=== PATIENT | female | born 2000 | race Caucasian/White ===

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

== ENCOUNTER 2021-01-23 13:10 | Emergency (ER) | payer OTHER ==
[2021-01-23] MEDS ORDERED: NEXPLANON68 MG SC (13:19)
[2021-01-23 14:01] LABS: URINE BILIRUBIN - DIPSTICK NEGATIVE (NEGATIVE); URINE BLOOD DIPSTICK NEGATIVE (NEGATIVE); URINE COLOR YELLOW; URINE GLUCOSE - DIPSTICK NEGATIVE (NEGATIVE); URINE KETONE NEGATIVE (NEGATIVE); URINE LEUK ESTERASE NEGATIVE (NEGATIVE); URINE PH 5.5 (4.5-8.0); URINE PROTEIN - DIPSTICK NEGATIVE (NEG-TRACE); URINE SPECIFIC GRAVITY >=1.030; URINE UROBILINOGEN - DIPSTICK 0.2 E.U./dL (0.2)
[2021-01-23 14:06] LABS: URINE NITRITE - DIPSTICK NEGATIVE (Negative)
[2021-01-23 14:16] LABS: HEMATOCRIT 45.9 % (37.0-47.0); HEMOGLOBIN 15.6 g/dl (12.0-16.0); IMMATURE GRANULOCYTES 0.2 % (0.0-5.0); MEAN CELL VOLUME 87.6 fL CALC (80.0-100.0); MEAN CORPUSCULAR HGB 29.8 pG CALC (26.0-32.0); NEUT# 2.46 thou/uL (2.00-7.15); RED BLOOD COUNT 5.24 mill/uL (4.20-5.60); RED CELL DISTRI WIDTH 11.9 % (11.5-15.5)
[2021-01-23 14:18] LABS: ALBUMIN 5.7 g/dL (3.2-5.0); ALKALINE PHOSPHATASE 66 u/l (38-126); ANION GAP 17 (6-22 (CALC)); BILIRUBIN, TOTAL 0.8 mg/dL (0.0-1.4); BUN 12 mg/dL (8-21); BUN/CREATININE RATIO 16 (12-20 (CALC)); CARBON DIOXIDE 28 mmol/l (22-30); CHLORIDE 101 mmol/l (95-108); CREATININE 0.8 mg/dL (0.5-1.0); GFR > 60 ML/MIN (>=60 (CALC)); GFR FOR AFR.AMER. > 60 ML/MIN (>=60 (CALC)); LIPASE 205 u/l (23-300); MAGNESIUM 2.1 mg/dL (1.6-2.3); POTASSIUM 3.9 mmol/l (3.5-5.1); SGOT/AST 32 u/l (14-36); SODIUM 141 mmol/l (137-146); TOTAL PROTEIN 9.1 g/dL (6.3-8.2)
[2021-01-23 14:48] LABS: TSH, 3RD GENERATION 0.88 uIU/mL (0.47 - 4.68)
[2021-01-23] MEDS ORDERED: METRONIDAZOLE500 MG PO (18:18)
[2021-01-23 18:41] VITALS: BP 97/52
== END 2021-01-23 18:41 | disposition home or self-care (01) ==
LOC: ED 13:10
PROVIDERS: Emergency Medicine
DX: R06.02 Shortness of breath (principal); N63.12 Unspecified lump in the right breast, upper inner quadrant; N89.8 Other specified noninflammatory disorders of vagina; N60.19 Diffuse cystic mastopathy of unspecified breast
CPT/HCPCS: Q9967

== ENCOUNTER 2021-06-06 20:49 | Emergency (ER) | payer OTHER ==
[~2021-06-06] VITALS: Ht 142.2 cm; Wt 52.0 kg
[~2021-06-06 20:49] MED LIST changes: +METRONIDAZOLE500 MG PO; +NEXPLANON68 MG SC
[2021-06-06 20:54] VITALS: BP 144/92
== END 2021-06-06 21:20 | disposition left against medical advice (07) ==
LOC: ED 20:49
DX: R06.00 Dyspnea, unspecified (principal); Z91.19 Patient's noncompliance with other medical treatment and regimen

== ENCOUNTER 2021-12-02 16:07 | Emergency (ER) | payer OTHER | END 2021-12-02 18:18 | disposition left against medical advice (07) | DRG 951 | LOC: ED 16:07 → LWOBS 18:17 | DX: Z53.21 Procedure and treatment not carried out due to patient leaving prior to being seen by health care provider (principal) ==

== ENCOUNTER 2022-04-01 16:15 | Emergency (ER) | payer OTHER ==
[~2022-04-01] VITALS: Ht 142.2 cm; Wt 48.9 kg
[2022-04-01 16:24] VITALS: BP 114/76
[2022-04-01] MEDS ORDERED: BACTRIM DS1 TAB PO (16:57)
[2022-04-01] MEDS ORDERED: METHOCARBAMOL500 MG PO (18:38)
[2022-04-01] MEDS ORDERED: NAPROXEN500 MG PO (18:38)
[2022-04-01 18:53] VITALS: BP 114/76
== END 2022-04-01 18:59 | disposition home or self-care (01) ==
LOC: ED 16:15
DX: S16.1XXA Strain of muscle, fascia and tendon at neck level, initial encounter (principal); M54.12 Radiculopathy, cervical region; X58.XXXA Exposure to other specified factors, initial encounter

== ENCOUNTER 2022-10-09 23:09 | Emergency (ER) | payer OTHER ==
[~2022-10-09] VITALS: Ht 142.2 cm; Wt 50.0 kg
[~2022-10-09 23:09] MED LIST changes: +BACTRIM DS1 TAB PO; +METHOCARBAMOL500 MG PO; +NAPROXEN500 MG PO
[2022-10-10 00:12] VITALS: BP 120/72
[2022-10-10 00:15] VITALS: BP 113/84
[2022-10-10 00:53] LABS: URINE BILIRUBIN - DIPSTICK NEGATIVE (NEGATIVE); URINE BLOOD DIPSTICK LARGE (NEGATIVE); URINE COLOR ORANGE; URINE GLUCOSE - DIPSTICK 250 mg/dL (NEGATIVE); URINE KETONE 40 mg/dL (NEGATIVE); URINE PROTEIN - DIPSTICK >=300 mg/dL (NEG-TRACE); URINE SPECIFIC GRAVITY 1.025; URINE UROBILINOGEN - DIPSTICK >=8.0 E.U./dL (0.2)
[2022-10-10 00:57] LABS: URINE LEUK ESTERASE SMALL (NEGATIVE); URINE NITRITE - DIPSTICK POSITIVE (Negative)
[2022-10-10 00:58] LABS: URINE RBC 25-50 RBC/hpf (0-5); URINE SQUAMOUS EPITHELIAL CELL FEW EPI/hpf (0-FEW); URINE WBC 20-50 WBC/hpf (0-5)
[2022-10-10 00:59] LABS: URINE BACTERIA MODERATE hpf; URINE MUCUS FEW hpf (NONE-FEW)
[2022-10-10] MEDS ORDERED: PYRIDIUM200 MG PO (01:02)
[2022-10-10] MEDS ORDERED: BACTRIM DS1 TAB PO (01:02)
[2022-10-10 01:15] VITALS: BP 113/84
== END 2022-10-10 01:15 | disposition home or self-care (01) ==
LOC: ED 23:09
PROVIDERS: Family Medicine
DX: N39.0 Urinary tract infection, site not specified (principal); B96.1 Klebsiella pneumoniae [K. pneumoniae] as the cause of diseases classified elsewhere

== ENCOUNTER 2023-03-29 17:12 | Emergency (ER) | payer OTHER ==
[~2023-03-29] VITALS: Ht 142.2 cm; Wt 58.0 kg
[2023-03-29] VITALS (11 sets, daily range): BP systolic 86–122; BP diastolic 42–72
[~2023-03-29 17:12] MED LIST changes: +PYRIDIUM200 MG PO
[2023-03-29 17:53] LABS: BASO% 0.2 % (0-3); EOS% 0.5 % (0-8); HEMATOCRIT 42.6 % (37.0-47.0); HEMOGLOBIN 14.6 g/dl (12.0-16.0); IMMATURE GRANULOCYTES 0.2 % (0.0-5.0); LYMPH% 6.3 % (15-41); MEAN CELL VOLUME 88.9 fL CALC (80.0-100.0); MEAN CORPUSCULAR HGB 30.5 pG CALC (26.0-32.0); MEAN CORPUSCULAR HGB CONC 34.3 g/dL CAL (32.0-36.0); MONO% 6.7 % (2-13); NEUT# 5.65 thou/uL (2.00-7.15); NEUT% 86.1 % (42-76); RED BLOOD COUNT 4.79 mill/uL (4.20-5.60); RED CELL DISTRI WIDTH 12.3 % (11.5-15.5)
[2023-03-29 18:13] LABS: ALBUMIN 4.7 g/dL (3.2-5.0); ALKALINE PHOSPHATASE 45 u/l (38-126); ANION GAP 16 (6-22 (CALC)); BILIRUBIN, TOTAL 1.1 mg/dL (0.02-1.3); BUN 16 mg/dL (7-17); BUN/CREATININE RATIO 21 (12-20 (CALC)); CHLORIDE 106 mmol/l (95-108); CREATININE 0.7 mg/dL (0.5-1.0); GFR FOR AFR.AMER. > 60 ML/MIN (>=60 (CALC)); GFR OTHER RACES > 60 ML/MIN (>=60 (CALC)); LIPASE 73 u/l (23-300); POTASSIUM 3.5 mmol/l (3.5-5.1); SGOT/AST 26 u/l (14-36); SODIUM 140 mmol/l (137-146); TOTAL PROTEIN 7.8 g/dL (6.3-8.2)
[2023-03-29 18:15] LABS: CARBON DIOXIDE 22 mmol/l (22-30)
[2023-03-29 19:06] LABS: URINE BLOOD DIPSTICK LARGE (NEGATIVE); URINE COLOR YELLOW; URINE GLUCOSE - DIPSTICK NEGATIVE (NEGATIVE); URINE KETONE 15 mg/dL (NEGATIVE); URINE LEUK ESTERASE NEGATIVE (NEGATIVE); URINE PROTEIN - DIPSTICK TRACE mg/dL (NEG-TRACE); URINE SPECIFIC GRAVITY >=1.030; URINE UROBILINOGEN - DIPSTICK 0.2 E.U./dL (0.2)
[2023-03-29 19:12] LABS: URINE BILIRUBIN - DIPSTICK SEE COMMNET (NEGATIVE); URINE NITRITE - DIPSTICK NEGATIVE (Negative)
[2023-03-29 19:21] LABS: URINE SQUAMOUS EPITHELIAL CELL FEW EPI/hpf (0-FEW); URINE WBC 0-2 WBC/hpf (0-5)
[2023-03-29] MEDS ORDERED: AZITHROMYCIN500 MG PO (19:58)
[2023-03-29] MEDS ORDERED: ZOFRAN4 MG/TAB PO (22:15)
== END 2023-03-29 20:23 | disposition home or self-care (01) ==
LOC: ED 17:12
PROVIDERS: Nurse Practitioner
DX: K52.9 Noninfective gastroenteritis and colitis, unspecified (principal); Z20.822 Contact with and (suspected) exposure to COVID-19

== ENCOUNTER 2024-04-04 19:11 | Emergency (ER) | payer SELFPAY ==
[~2024-04-04] VITALS: Ht 142.2 cm; Wt 53.0 kg
[~2024-04-04 19:11] MED LIST changes: +AZITHROMYCIN500 MG PO; +ZOFRAN4 MG/TAB PO; +ZPAK PO
[2024-04-04 19:29] VITALS: BP 134/82
[2024-04-04] MEDS ORDERED: Pantoprazole Sodium 40 MG VIAL (Protonix) IV STA (19:32)
[2024-04-04] MEDS ORDERED: SODIUM CHLORIDE 0.9% 1,000 ML IV STA (19:32)
[2024-04-04] MEDS ORDERED: ALUM & MAG HYDROX-SIMETHICONE 30 ML PO ONE (19:35)
[2024-04-04] MEDS ORDERED: PROMETHAZINE HCL 25 MG/ML AMP IV ONE (19:35)
[2024-04-04] MEDS ORDERED: KETOROLAC TROMETHAMINE 30 MG/ML SDV IV ONE (19:35)
[2024-04-04] MEDS ORDERED: LIDOCAINE VISCOUS 2% 15 ML UDC PO ONE (19:35)
[2024-04-04 19:49] LABS: URINE BILIRUBIN - DIPSTICK Negative (NEGATIVE); URINE BLOOD DIPSTICK Negative (NEGATIVE); URINE GLUCOSE - DIPSTICK Negative (NEGATIVE); URINE KETONE 80 mg/dL (NEGATIVE); URINE LEUK ESTERASE Negative (NEGATIVE); URINE NITRITE - DIPSTICK Negative (Negative); URINE PROTEIN - DIPSTICK Negative (NEG-TRACE); URINE UROBILINOGEN - DIPSTICK 0.2 E.U./dL (0.2)
[2024-04-04 19:51] LABS: BASO% 0.1 % (0-3); EOS% 1.4 % (0-8); HEMATOCRIT 44.1 % (37.0-47.0); HEMOGLOBIN 15.1 g/dl (12.0-16.0); IMMATURE GRANULOCYTES 0.2 % (0.0-5.0); LYMPH% 17.9 % (15-41); MEAN CELL VOLUME 90.4 fL CALC (80.0-100.0); MEAN CORPUSCULAR HGB 30.9 pG CALC (26.0-32.0); MEAN CORPUSCULAR HGB CONC 34.2 g/dL CAL (32.0-36.0); MONO% 5.8 % (2-13); NEUT# 8.32 thou/uL (2.00-7.15); NEUT% 74.6 % (42-76); RED BLOOD COUNT 4.88 mill/uL (4.20-5.60); RED CELL DISTRI WIDTH 12.2 % (11.5-15.5)
[2024-04-04 19:54] LABS: URINE COLOR Yellow
[2024-04-04 20:00] LABS: ALBUMIN 4.6 g/dL (3.2-5.0); BILIRUBIN, TOTAL 0.8 mg/dL (0.02-1.3); CREATININE 0.8 mg/dL (0.5-1.0); POTASSIUM 3.5 mmol/l (3.5-5.1)
[2024-04-04 21:01] VITALS: BP 96/46
[2024-04-04] MEDS ORDERED: PEPCID40 MG PO (21:05)
[2024-04-04] MEDS ORDERED: TYLENOL # 31 TA1 PO (21:05)
[2024-04-04 21:29] VITALS: BP 96/46
== END 2024-04-04 21:29 | disposition home or self-care (01) | DRG 392 ==
LOC: ED 19:11
PROVIDERS: Family Medicine
DX: R10.11 Right upper quadrant pain (principal); R10.13 Epigastric pain; N20.0 Calculus of kidney; N83.201 Unspecified ovarian cyst, right side
CPT/HCPCS: S0164